=== PATIENT | male | born 1995 | race Caucasian/White ===

== ENCOUNTER 2017-08-25 15:39 | Emergency (ER) | payer BC ==
--- NOTE | 2017-08-25 16:00 | EDPHY ---
H & P Stated Complaint: FELL OUT OF A TREE APPROX 7 FEET Time Seen by Provider: 08/25/17 15:59 - Personal History Current Tetanus/Diphtheria Vaccine: Yes Current Tetanus Diphtheria and Acellular Pertussis (TDAP): Yes - Medical/Surgical History Hx Asthma: No Hx Chronic Respiratory Disease: No Hx Diabetes: No Hx Cardiac Disease: No Hx Renal Disease: No Hx Cirrhosis: No Hx Alcoholism: No Hx HIV/AIDS: No Hx Splenectomy or Spleen Trauma: No Other PMH: DENIES - Social History Smoking Status: Never smoked Constitutional: Initial Vital Signs Temperature (C) 36.6 C 08/25/17 15:53 Heart Rate 83 08/25/17 15:53 Respiratory Rate 20 08/25/17 15:53 Blood Pressure 104/74 08/25/17 15:53 O2 Sat (%) 95 08/25/17 15:53 O2 Delivery Mode Room Air Allergies/Adverse Reactions: No Known Allergies Allergy (Unverified 08/25/17 15:52) Home Medications: Medication Instructions Recorded NK [No Known Home Meds] 08/25/17 Medical Decision Making - Diagnostics Imaging Results: Imaging Impressions Ribs w/Chest X-Ray 08/25/17 16:23 Impression: 1. Negative left rib series. 2. No acute abnormality within the chest. Imaging: I viewed and interpreted images myself ED Course/Re-evaluation: CHIEF COMPLAINT: Chest pain secondary to fall HISTORY OF PRESENT ILLNESS: The patient is a 22 y/o male complaining of left- sided chest pain secondary to falling 7-10ft onto his chest. This afternoon he was climbing tree when his foot slipped causing him to land onto his chest onto a rock and then roll down the hill a few more feet. He denies head strike, loss of consciousness, weakness, paresthesias, abdominal pain, midline spinal pain, or other injuries. His pain is mild to moderate in severity and described as dull, constant, and worse with palpation. He had some nausea previously, but this has resolved. He denies dyspnea, radiation, diaphoresis. REVIEW OF SYSTEMS: A 10 point review of systems was performed and is negative with the exception of the elements mentioned in the history of present illness. PHYSICAL EXAM: HR, BP, O2 Sat, RR. Temp noted General Appearance: Alert, well hydrated, appropriate, and non-toxic appearing. Head: Atraumatic without scalp tenderness or obvious injury Eyes: Pupils equal, round, reactive to light and accommodation, EOMI, no trauma , no injection. Nose: Atraumatic, no rhinorrhea, clear. Throat: Mucus membranes moist. Neck: Supple, nontender, no lymphadenopathy. Respiratory: No retractions, no distress, no wheezes, and no accessory muscle use. Lungs are clear to auscultation bilaterally. Cardiovascular: Regular rate and rhythm, no murmurs, rubs, or gallops. Good capillary refill all extremities. Chest: Tenderness and non-suturable laceration over left chest around 4th-5th intercostal space. Gastrointestinal: Abdomen is soft, nontender, non-distended, no masses, no rebound, no guarding, no peritoneal signs. Musculoskeletal: Normal active ROM of all extremities, atraumatic. Neurological: Alert, appropriate, and interactive. The patient has non-focal cranial nerves, motor, sensory, and cerebellar exam. Skin: No rashes, good turgor, no nodules on palpation. Past medical history: Denies Past surgical history: Denies Family history: Noncontributory Social history: Friend at bedside DIAGNOSTICS/PROCEDURES/CRITICAL CARE TIME: Left rib x-rays: negative Procedure: Trauma ultrasound. Indication: Blunt trauma evaluation Limited bedside ultrasound was performed and interpreted by myself for the indication of: blunt trauma utilizing the thoraco-abdominal emergency ultrasound protocol. Limited transthoracic echocardiogram for pericardial effusion: Findings: The pericardium was visualized and found to be negative for pericardial fluid. Impression: The study was negative for pericardial effusion. Limited abdominal ultrasound for blunt abdominal trauma: Findings: The right upper quadrant and Owens's pouch were visualized and were found to be negative for intra-peritoneal fluid. The left upper quadrant was visualized and found to be negative for intra-peritoneal fluid. Impression: The study was felt to be negative for free intra-peritoneal fluid. Limited pelvic ultrasound was conducted for blunt trauma. Findings: The bladder was visualized and did not reveal an anechoic area outside of the adjacent urinary bladder. Bladder was not distended with urine. Impression: Negative pelvic ultrasound DIFFERENTIAL DIAGNOSIS: The differential diagnosis for the patient's trauma included but was not limited to intracranial injury, long bone and pelvic bone fractures, spinal injury, intra-abdominal injury, and intra-thoracic injury. MEDICAL DECISION MAKING: This is a healthy and well-appearing 22 y/o male who presents with isolated trauma to the left side of his chest secondary to falling out of a tree this afternoon. He has some tenderness over his left anterior chest around the 4th-5th intercostal space and a superficial overlying laceration. Palpation of his epigastrium causes some pain in his chest. He has normal lung sounds and is not tachypneic. Plan for rib x-rays and bedside FAST US exam. Limited bedside US is negative for signs of intraabdominal bleeding. Rib x-rays are negative. Patient will be discharged home with standard chest contusion and wound care instruction and follow up directions. Return precautions discussed. He is comfortable with this plan. Departure - Departure Disposition: Home, Routine, Self-Care Clinical Impression: Superficial abrasion Chest wall contusion Qualifiers: Encounter type: initial encounter Laterality: left Qualified Code(s): S20.212A - Contusion of left front wall of thorax, initial encounter Condition: Good Instructions: Contusion in Adults (ED), Acute Wounds (ED) Additional Instructions: 1. Take 600mg ibuprofen every 6-8 hours as needed for pain over the next few days. 2. Apply ice to sore areas intermittently if helpful for pain. 3. Follow up with your primary care provider for unimproved symptoms over the next few days. 4. Return to the ED for severe pain, difficulty breathing, or other worsening of condition. Referrals: JOVANNI Newman,. [Clinic] - As per Instructions Report Scribed for: Bg Navarrete Report Scribed by: Catherine Clancy Date of Report: 08/25/17
[2017-08-25] MEDS ORDERED: LET GEL TOPICAL 1 EA SYR TP ONE (16:28)
[2017-08-25 17:38] VITALS: BP 114/60
== END 2017-08-25 17:37 | disposition home or self-care (01) ==
DX: S20.212A Contusion of left front wall of thorax, initial encounter (principal); T14.8XXA Other injury of unspecified body region, initial encounter; W14.XXXA Fall from tree, initial encounter; Y99.8 Other external cause status; Y93.39 Activity, other involving climbing, rappelling and jumping off